=== PATIENT | female | born 1975 | race Caucasian/White ===

== ENCOUNTER 2017-04-15 08:21 | Emergency (ER) | payer SELFPAY ==
[~2017-04-15] VITALS: Ht 167.6 cm; Wt 56.3 kg
[~2017-04-15 08:21] MED LIST: HYDR1TAB12; SUCR1TAB26
[2017-04-15] MEDS ORDERED: HYDROmorphone 1 MG/ML, 1ML IM ONE (09:30)
[2017-04-15] MEDS ORDERED: HYDROmorphone 1 MG/ML, 1ML ONE (09:32)
[2017-04-15 09:58] LABS: BLOOD UREA NITROGEN 10 mg/dL (7-18)
[2017-04-15 10:27] LABS: PATH.CAST-FLAG NOT PRESENT; SPERM-FLAG NOT PRESENT; SRC-FLAG NOT PRESENT; XTAL-FLAG NOT PRESENT; YLC-FLAG NOT PRESENT
[2017-04-15] MEDS ORDERED: ONDANSETRON 2MG/ML, 2ML ONE (11:40)
[2017-04-15] MEDS ORDERED: KETOROLAC 30 MG/1 ML ONE (11:40)
[2017-04-15] MEDS ORDERED: KETOROLAC 30 MG/1 ML IVPush ONE (12:00)
[2017-04-15] MEDS ORDERED: ONDANSETRON 2MG/ML, 2ML IVPush ONE (12:00)
[2017-04-15] MEDS ORDERED: SODIUM CHLORIDE 0.9% 1,000ML IV ONE (12:00)
[2017-04-15] MEDS ORDERED: SODIUM CHLORIDE FLUSH 10ML SYR IVF ONE (12:00)
[2017-04-15 12:27] VITALS: BP 147/86
== END 2017-04-15 13:35 | disposition home or self-care (01) ==
LOC: ED 10:44
DX: M54.16 Radiculopathy, lumbar region (principal)
CPT/HCPCS: 36415; 72110; 80048; 81001; 82040; 85025; 87077; 87086; 96361; 96372; 96374; 96375; 99285; J1170; J1885; J2405; J7030; J7512; 87186

== ENCOUNTER 2018-12-30 22:35 | Emergency (ER) | payer SELFPAY ==
[~2018-12-30] VITALS: Ht 167.6 cm; Wt 57.9 kg
[~2018-12-30 22:35] MED LIST changes: -SUCR1TAB26; +SUCR1TAB33
--- NOTE | 2018-12-30 23:48 | NUR ---
PT PRESENTED WITH C/O HEADACHE AND NUMBNESS, IN NECK AND BACK, REPORTS FEELING DIZZY HX OF SAME 3 YEARS AGO WHEN SHE NEEDED A BLOOD TRANSFUSION, + NAUSEA. MONITORS APPLIED, SIDERAILS UP X2, CALL LIGHT WITHIN REACH, AWAITING ERP FOR EVAL
[2018-12-31] MEDS ORDERED: SODIUM CHLORIDE FLUSH 10ML SYR IVF ONE (00:30)
[2018-12-31 00:36] LABS: BASOPHILS # (AUTO) 0.03 x10^3/uL (0-0.1); BASOPHILS % (AUTO) 0 % (0-1); EOSINOPHILS # (AUTO) 0.28 x10^3/uL (0-0.4); EOSINOPHILS % (AUTO) 3 % (1-7); LYMPHOCYTES # (AUTO) 2.36 x10^3/uL (1-3.4); LYMPHOCYTES % (AUTO) 22 % (22-44); MD NO; MEAN CORPUSCULAR HEMOGLOBIN 31.2 pg (27.0-34.8); MEAN CORPUSCULAR HGB CONC 33.7 g/dL (32.4-35.8); MEAN CORPUSCULAR VOLUME 92.6 fL (80-100); MEAN PLATELET VOLUME 7.9 fL (7.4-10.4); MONOCYTES # (AUTO) 0.79 x10^3/uL (0.2-0.8); MONOCYTES % (AUTO) 7 % (2-9); NEUTROPHILS # (AUTO) 7.45 x10^3/uL (1.8-6.8); NEUTROPHILS % (AUTO) 68 % (42-75); PLATELET COUNT 395 x10^3/uL (130-400); RED BLOOD COUNT 4.69 x10^6/uL (3.82-5.3); RED CELL DISTRIBUTION WIDTH 12.5 % (9.6-15.2)
--- NOTE | 2018-12-31 00:36 | NUR ---
iv site started, pt c/o h/a, will update erp
[2018-12-31 00:46] LABS: INTERNATIONAL NORMALIZED RATIO 0.94 (0.93-1.1)
[2018-12-31 00:49] LABS: ALANINE AMINOTRANSFERASE 28 U/L (12-78); ALBUMIN 3.6 g/dL (3.4-5.0); ANION GAP 6 mmol/L (5-15); CALCIUM 8.8 mg/dL (8.5-10.1); CHLORIDE 107 mmol/L (98-107); CREATININE 0.74 mg/dL (0.55-1.02)
[2018-12-31 00:51] LABS: ALKALINE PHOSPHATASE 128 U/L (45-117); BILIRUBIN,TOTAL 0.2 mg/dL (0.2-1.0)
[2018-12-31] MEDS ORDERED: ACETAMINOPHEN 500 MG TABLET ONE (00:58)
[2018-12-31] MEDS ORDERED: SODIUM CHLORIDE 0.9% 1,000ML IVBOLUS ONE (01:00)
[2018-12-31] MEDS ORDERED: ACETAMINOPHEN 325 MG TABLET PO ONE (01:00)
--- NOTE | 2018-12-31 01:22 | NUR ---
TASK RN: PT RETURNED FROM CT. NAD NOTED. PWD.
[2018-12-31] MEDS ORDERED: OMNIPAQUE 350 MG/ML, 100ML BOTTLE ONE (01:25)
[2018-12-31] MEDS ORDERED: ACETAMINOPHEN 500 MG TABLET PO ONE (01:30)
--- NOTE | 2018-12-31 01:43 | NUR ---
TASK RN: PT REPORTS IMPROVEMENT IN PAIN W MEDICATIONS AN IVF. BP/SPO2/ECG MONITORING IN PLACE. NSR ON MONITOR. FAMILY PRESENT. DISCUSSED POC WITH PT/FAMILY (RESULTS/RECHECK) WHO DEMONSTRATE AN UNDERSTANDING.
--- NOTE | 2018-12-31 01:53 | NUR ---
ADDITIONAL ORDER RECEIVED FOR ULTRASOUND
--- NOTE | 2018-12-31 02:13 | NUR ---
PT TO ULTRASOUND
[2018-12-31 03:06] VITALS: BP 147/90
--- NOTE | 2018-12-31 03:07 | NUR ---
PT RESTING CALMLY, MONITORS IN PLACE, FAMILY AT BEDSIDE, CALL LIGHT WITHIN REACH.
[2018-12-31] MEDS ORDERED: MECLIZINE CHEWABLE 25 MG TAB ONE (03:12)
[2018-12-31] MEDS ORDERED: MECLIZINE CHEWABLE 25 MG TAB PO ONE (03:30)
== END 2018-12-31 04:02 | disposition home or self-care (01) ==
LOC: ED 23:59
DX: N83.02 Follicular cyst of left ovary (principal); R42 Dizziness and giddiness; Z98.890 Other specified postprocedural states
CPT/HCPCS: 36415; 74177; 76830; 80053; 84703; 85025; 85610; 86850; 86900; 93005; 96360; 99284; J7030; Q9967